=== PATIENT | female | born 1985 | race Caucasian/White ===

== ENCOUNTER 2018-11-30 11:45 | Emergency (ER) | payer OTHER ==
[2018-11-30 11:51] VITALS: BP 144/99; PULSE 85; TEMP 98.2; BMI 29.0
[2018-11-30] MEDS ORDERED: KETOROLAC TROMETHAMINE 60 MG/2 ML VIAL IM ONE (12:28)
--- NOTE | 2018-11-30 12:28 | PDOC ---
History of Present Illness - General Chief Complaint: Chronic pain Stated Complaint: RT KNEE PAIN Time Seen by Provider: 11/30/18 12:04 History Source: Patient Exam Limitations: No Limitations - History of Present Illness Initial Comments: 11/30/18 12:22 HISTORY OF PRESENT ILLNESS: 33-year-old woman presents emergency department for evaluation of acute on chronic knee pain. Patient has been followed by Dr. coto of orthopedics and states she is going to have arthroscopy of her right knee for "cartilage tear." Patient is unsure of which cartilage damage in her knee. Patient has been taken Tylenol with minimal relief of symptoms. Patient contacted orthopedist yesterday who told her to come to the emergency department for reevaluation. Patient is ambulatory on her leg with a limp. No recent travel or sick contacts. PAST MEDICAL HISTORY: Denies past medical history SURGICAL HISTORY: Denies ALLERGIES: No known drug allergies REVIEW OF SYSTEMS General/Constitutional: Denies fever or chills. Denies weakness, weight change. HEENT: Denies change in vision. Denies ear pain or discharge. Denies sore throat. Cardiovascular: Denies chest pain or shortness of breath. Respiratory: Denies cough, wheezing, or hemoptysis. Gastrointestinal: Denies nausea, vomiting, diarrhea or constipation. Denies rectal bleeding. Genitourinary: Denies dysuria, frequency, or change in urination. Musculoskeletal: see HPI Skin and breasts: Denies rash or easy bruising. Neurologic: Denies headache, vertigo, loss of consciousness, or loss of sensation. Psychiatric: Denies depression or anxiety. Endocrine: Denies increased thirst. Denies abnormal weight change. Hematologic/Lymphatic: Denies anemia, easy bleeding, or history of blood clots. Allergic/Immunologic: Denies hives or skin allergy. Denies latex allergy. PHYSICAL EXAM General Appearance: Well-appearing, appropriately dressed. No apparent distress , no intoxication. Respiratory/Chest: Lungs CTAB. No shortness of breath, chest tenderness, respiratory distress, accessory muscle use. No crackles, rales, rhonchi, stridor , wheezing, dullness Cardiovascular: RRR. S1, S2. No JVD, murmur, bradycardia, tachycardia. Musculoskeletal/Extremities: Limited flexion of right knee is noted. Full extension capable. Capillary refill less than 2 seconds ambulatory with a limp. No bony tenderness, crepitus, deformity or step-offs are present. Full articulation of the ankle and hip. 2+ DP pulses present. Skin color and temperature is normal. Integumentary: Appropriate color, dry, warm. No cyanosis, erythema, jaundice or rash Past History - Past Medical History Allergies/Adverse Reactions: Allergies Allergy/AdvReac Type Severity Reaction Status Date / Time hydrochlorothiazide Allergy Verified 11/30/18 12:40 Home Medications: Ambulatory Orders Diclofenac Sodium [Voltaren] 100 gm TP TID PRN #1 tube 11/30/18 COPD: No - Suicide/Smoking/Psychosocial Hx Smoking History: Never smoked Hx Alcohol Use: No Drug/Substance Use Hx: No *Physical Exam - Vital Signs Last Vital Signs Temp Pulse Resp BP Pulse Ox 98.2 F 85 16 144/99 98 11/30/18 11:49 11/30/18 11:49 11/30/18 11:49 11/30/18 11:49 11/30/18 11:49 Medical Decision Making - Medical Decision Making 11/30/18 12:26 A/P: 33-year-old woman with acute on chronic right knee pain Unable to contact orthopedist as there is no current doctor at this time. Toradol 60 mg IM now Discharge home with diclofenac gel Instruct patient to follow-up with her orthopedist's within the next 2 days. I discussed the physical exam findings, ancillary test results and final diagnoses with the patient. I answered all of the patient's questions. The patient was satisfied with the care received and felt comfortable with the discharge plan and treatment plan. The patient will call their primary care physician within 24 hours to arrange follow-up and will return to the Emergency Department with any new, persistent or worsening symptoms. Portions of this note have been documented using voice recognition software. As a result, errors may occur in the teacher private process. Effort has been made to correct all grammatical and teacher private error, but some may have been missed. 11/30/18 12:59 Patient repeated her desire for orthopedic consultation prior to discharge. Patient provided alternate number for the physician was contacted. Answering service is unable to contact her orthopedist at this time and message left to return call. Patient aware of conversation with answering service. *DC/Admit/Observation/Transfer Diagnosis at time of Disposition: Right knee pain Qualifiers: Chronicity: chronic Qualified Code(s): M25.561 - Pain in right knee - Discharge Dispostion Disposition: HOME Condition at time of disposition: Stable Decision to Admit order: No - Prescriptions Prescriptions: Diclofenac Sodium [Voltaren] 100 gm TP TID PRN #1 tube PRN Reason: Pain - Referrals - Patient Instructions Additional Instructions: Apply Voltaren gel to right knee 3 times a day as needed for pain. May take Tylenol as directed by manufacturers instructions in between doses of all Graciela. Call orthopedist tomorrow to schedule an appointment as soon as possible. Return to emergency department for any new or worsening symptoms Thank you very much for choosing us to provide your emergent health care needs - Post Discharge Activity
== END 2018-11-30 13:26 | disposition home or self-care (01) ==
LOC: JERFT 11:45
PROC: 3E0233Z Introduction of Anti-inflammatory into Muscle, Percutaneous Approach (ICD-10-PCS; principal; 2018-11-30)
DX: M25.561 Pain in right knee (principal)
CPT/HCPCS: 96372; 99282-25

== ENCOUNTER 2018-12-12 05:54 | Day surgery (SDC) | payer OTHER ==
[2018-12-05 10:41] VITALS: BMI 35.3
[2018-12-12] MEDS ORDERED: PROPOFOL 20 ML ONE (07:13)
[2018-12-12] MEDS ORDERED: SUCCINYLCHOLINE CHLORIDE 200 MG/10 ML SYRINGE ONE (07:13)
[2018-12-12] MEDS ORDERED: MIDAZOLAM HCL 2 MG/2 ML SINGLE DOSE VIAL ONE (07:13)
[2018-12-12] MEDS ORDERED: methylPREDNISolone ACET (DEPO) 40 MG/1 ML VIAL ONE (07:24)
[2018-12-12] MEDS ORDERED: BUPIVACAINE HCL/PF 2.5 MG/ML - 30 ML VIAL IJ ONE (07:24)
[2018-12-12] MEDS ORDERED: EPINEPHrine 1:1,000 1 MG/1 ML - 30ML VIAL (INJECTION) ONE (07:25)
[2018-12-12] MEDS ORDERED: ceFAZolin SODIUM 1 GM VIAL ONE (07:47)
[2018-12-12] MEDS ORDERED: ONDANSETRON 4 MG/2 ML VIAL IVPUSH PRN (08:04)
[2018-12-12] MEDS ORDERED: oxyCODONE HCL 5 MG TABLET PO PRN ×2 (08:04)
[2018-12-12] MEDS ORDERED: LACTATED RINGERS SOLUTION 1,000 ML IV SCH (08:15)
[2018-12-12] MEDS ORDERED: ePHEDrine SULFATE 50 MG/1 ML AMPULE ONE (08:17)
[2018-12-12] MEDS ORDERED: DEXAMETHASONE SOD PHOSPHATE 4 MG/1 ML VIAL ONE (08:31)
[2018-12-12] MEDS ORDERED: ONDANSETRON 4 MG/2 ML VIAL ONE (08:31)
--- NOTE | 2018-12-12 08:55 | OP ---
Operative Note - Note: Operative Date: 12/12/18 Pre-Operative Diagnosis: Osteoarthritis valgus left knee with lateral meniscal tear. Operation: Diagnostic Arthroscopy left knee Findings: Normal knee with hypermobile meniscus medial and lateral Post-Operative Diagnosis: Other Surgeon: Maurice Boudreaux Anesthesiologist/TRIMMING DEPARTMENT BLOCKER: Chip Elizabeth Anesthesia: General Estimated Blood Loss (mls): 0 Operative Report Dictated: Yes
--- NOTE | 2018-12-12 09:00 | PN ---
Progress Note (short form) - Note Progress Note: Left knee arthroscopy for painfull valgus deformity associated intermittent locking. Failed conservative treatment including PT and intra articular injections Arthroscopy revealed a normal knee with hypermobile menisci flopping in and out of the joint. Diagnostic arthroscopy performed only.
--- NOTE | 2018-12-12 09:42 | OP ---
DATE OF OPERATION: 12/12/2018 SURGEON: Maurice Boudreaux MD PREOPERATIVE DIAGNOSIS: Osteoarthritis of the right knee with valgus deformity and possible lateral meniscal tear. POSTOPERATIVE DIAGNOSIS: Normal knee with valgus deformity and hypermobile menisci. OPERATION PERFORMED: Diagnostic arthroscopy of the right knee. ANESTHESIA: General. ANTIBIOTICS GIVEN: Kefzol 1 g pre-op. DESCRIPTION OF PROCEDURE: The patient was correctly identified and brought to the operating room. Right lower extremity was prepped free and draped in the routine manner, with Betadine scrub solution, wiped off with alcohol, and DuraPrep applied. A leg mendiola was utilized. The operation was performed with the knee in a flexed position. A bloodless field was utilized. Examination under anesthesia revealed a range of movement of -5 to 140 degrees. Ligament stability in the coronal plane at 0 degrees was completely stable, at 30 degrees significant coronal instability noted, and in flexion sagittal stability was normal. A Eric test performed under anesthesia revealed no palpable click or clunk of any meniscal or internal derangement features of this knee. Patellar tracking was normal. The indication for this operation was ongoing persistent pain and locking in the knee with failed conservative treatment, i.e., PT, analgesic anti-inflammatory medication and injection therapy. The arthroscope was introduced anterolaterally. A very clear evaluation of the synovium revealed no diffuse or patchy synovitis in any part of the knee. This was extensively looked at throughout, including the popliteal hiatus. The retropatellar surface was normal. The trochlear groove was normal. No rim osteophytes around the periphery of the femur noted. The hyaline cartilage of the femoral condyle both medially and laterally was normal. The intercondylar notch - there was a small start of a rim of osteophyte formation around the arcade arch of the intercondylar notch. The cruciate ligaments were completely intact. Some stippled calcification from the previous cortisone injection was noted. The medial and lateral joint compartments were easily entered because of the laxity. This revealed the presence of completely normal femoral condylar surface and tibial plateau surface both medially and laterally. The medial and lateral menisci were scoped from back to front and found to be completely intact. In flexion and extension of the knee, they appeared to be hypermobile, flopping in and out of the joint surface in performing this. The knee was thoroughly lavaged. The portals were closed with No. 3-0 nylon, and Marcaine and steroid instilled into the joint. No complications. MD NIRAV Stover/[id number]
[2018-12-12] MEDS ORDERED: LOSARTAN 50MG/HCTZ 12.5MG 1 TAB (FP) PO SCH (10:00)
[2018-12-12] MEDS ORDERED: oxyCODONE HCL 5 MG TABLET ONE (10:02)
--- NOTE | 2018-12-12 10:57 | PN ---
Progress Note (short form) - Note Progress Note: 33F s/p surgical arthroscopy right knee POD #0. -Pain control. -Incentive spirometry. -PT/OT/Rehab if needed. -WBAT RLE. -Crutch training. -Keep dressing clean & dry; remove dressing on Saturday and cover suture sites with water-proof Band-Aid. -Percocet & Naproxen ordered to pharmacy for analgesia. -Discharge home: f/u [facility] [place] [facility] in 1 week; call for appointment: . Maurice Boudreaux MD (Orthopaedic Surgery).
[2018-12-12 11:51] VITALS: BP 132/82; PULSE 84; TEMP 97.4
== END 2018-12-12 12:45 | disposition home or self-care (01) ==
LOC: FASU 05:54
PROVIDERS: ATTEND Orthopaedic Surgery Orthopaedic Surgery of the Spine
PROC: 0SJC4ZZ Inspection of Right Knee Joint, Percutaneous Endoscopic Approach (ICD-10-PCS; principal; 2018-12-12 08:19)
DX: M21.061 Valgus deformity, not elsewhere classified, right knee (principal); M35.7 Hypermobility syndrome
CPT/HCPCS: 81025; 94760